=== PATIENT | male | born 1990 | race Two or more races ===

== ENCOUNTER 2016-09-18 18:26 | Emergency (ER) | payer OTHER ==
[2016-09-18 18:45] VITALS: PULSE 68; RESP 16; TEMP 98.6; O2SAT 98
--- NOTE | 2016-09-18 19:22 | EDPHY ---
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 Patient states injury was about 1700 has attempt in whether not he needed stitches decided to come in a week. Full range of motion, tetanus vaccine up-to-date 2 years ago. Denies any other injuries REVIEW OF SYSTEMS: Constitutional: No fever, no chills. Eyes: No discharge. No blurred vision Cardiovascular: No chest pain, no palpitations. Respiratory: No cough, no shortness of breath. Gastrointestinal: No abdominal pain, no vomiting. Musculoskeletal: No back pain. Right thumb laceration Skin: No rashes. Neurological: No headache. Smoking Status: Never smoked Physical Exam: General Appearance: Alert and no distress. Eyes: Pupils equal and round no injection. Respiratory: Chest is nontender, lungs are clear to auscultation. Cardiac: regular rate and rhythm Gastrointestinal: Abdomen is soft and nontender, no masses, bowel sounds normal. Musculoskeletal: Neck is supple and nontender. Extremities: full range of motion 1.5 cm noted to right thumb no tendon involvement. Positive CMS intact Skin: No rashes or lesions. Constitutional: Initial Vital Signs Temperature (C) 37.0 C 09/18/16 18:43 Heart Rate 68 09/18/16 18:43 Respiratory Rate 16 09/18/16 18:43 O2 Sat (%) 98 09/18/16 18:43 O2 Delivery Mode Room Air Allergies/Adverse Reactions: No Known Allergies Allergy (Unverified 09/18/16 18:42) Home Medications: Medication Instructions Recorded NK [No Known Home Meds] 09/18/16 Medical Decision Making Procedures: Procedure: Laceration repair. Verbal consent was obtained from the patient. 1.5cm laceration on the right thumb. 0.5% bupivacaine without epi 3 mL digital block The wound was irrigated. There were no deep structures involved. The wound was repaired 5-0 Ethilon #5 sutures placed The procedure was performed by myself. A dressing was applied by our EMT. ED Course/Re-evaluation: Discussed the plan of care: Wound irrigation, suture repair 1939: Wound repair, patient tolerated procedure. Discharge home---> stable, discussed discharge instructions with patient Differential Diagnosis: Other differential diagnosis considered but not limited to laceration with tendon involvement, nail laceration, and an foreign body Departure - Departure Disposition: Home, Routine, Self-Care Clinical Impression: Laceration Condition: Good Instructions: Care For Your Stitches (ED), Laceration (ED) Additional Instructions: 1. Leave initial dressing on for 24 hours then afterwards daily dressing changes 2. Have sutures removed in 10 days. Monitor for any signs infection, such as: Redness swelling red streaks if this should occur return to ER 3. You can take ibuprofen as needed 4. No [place] water, river water exposure as this can increase her chances for infection Referrals: NONE *PRIMARY CARE P,. [Primary Care Provider] - As per Instructions [facility],. [Clinic] - As per Instructions
== END 2016-09-18 20:05 | disposition home or self-care (01) ==
LOC: MERGE 18:26
PROC: 0HQFXZZ Repair Right Hand Skin, External Approach (ICD-10-PCS; principal; 2016-09-18)
DX: S61.011A Laceration without foreign body of right thumb without damage to nail, initial encounter (principal); W27.0XXA Contact with workbench tool, initial encounter; Y92.69 Other specified industrial and construction area as the place of occurrence of the external cause; Y99.0 Civilian activity done for income or pay; Y93.89 Activity, other specified